=== PATIENT | female | born 1995 | race African-American/Black ===

== ENCOUNTER 2017-03-12 21:51 | Observation (INO) | payer BC, MEDICAID ==
[~2017-03-12] VITALS: Ht 165.1 cm; Wt 68.0 kg
[2017-03-12] MEDS ORDERED: PREN-88 PO (22:41)
[2017-03-12] MEDS ORDERED: LACTATED RINGERS 1,000 ML IV SCH (23:00)
[2017-03-12] MEDS ORDERED: ACETAMINOPHEN 500MG TABLET PO ONE (23:00)
[2017-03-12 23:55] LABS: CLARITY URINE CLOUDY (CLEAR); COLOR URINE YELLOW (YELLOW); GLUCOSE URINE NEGATIVE (NEGATIVE); KETONES URINE TRACE (NEGATIVE); LEUKOCYTE ESTERASE URINE TRACE (NEGATIVE); NITRITE URINE NEGATIVE (NEGATIVE); OCCULT BLOOD URINE 1+ (NEGATIVE); PH URINE 6.5 (4.5-8.0); PROTEIN URINE 1+ (NEGATIVE); SPECIFIC GRAVITY URINE 1.026 (1.005-1.030)
[2017-03-13 01:01] LABS: SQUAMOUS EPITHELIAL CELL URINE FEW /lpf (RARE/1+)
[2017-03-13 01:03] LABS: BACTERIA URINE NONE SEEN; WBC URINE 0-2 /hpf (0-2)
== END 2017-03-13 01:45 | disposition home or self-care (01) ==
LOC: L&D 21:51
PROVIDERS: ADMIT Specialist; ATTEND Specialist
DX: O26.893 Other specified pregnancy related conditions, third trimester (principal); R10.2 Pelvic and perineal pain; O26.853 Spotting complicating pregnancy, third trimester; Z3A.32 32 weeks gestation of pregnancy
CPT/HCPCS: 81001; 96360; 96361; 99281; G0378; J7120

== ENCOUNTER 2017-04-01 14:03 | Observation (INO) | payer BC, MEDICAID ==
[~2017-04-01] VITALS: Ht 165.1 cm; Wt 70.3 kg
[~2017-04-01 14:03] MED LIST: PREN-88 PO
[2017-04-01] MEDS: ACETAMINOPHEN 500MG TABLET PO NR ×2 (16:05→16:06)
[2017-04-01 16:28] LABS: CLARITY URINE CLOUDY (CLEAR); COLOR URINE YELLOW (YELLOW); GLUCOSE URINE NEGATIVE (NEGATIVE); KETONES URINE TRACE (NEGATIVE); LEUKOCYTE ESTERASE URINE 2+ (NEGATIVE); NITRITE URINE NEGATIVE (NEGATIVE); OCCULT BLOOD URINE NEGATIVE (NEGATIVE); PH URINE 6.5 (4.5-8.0); PROTEIN URINE 2+ (NEGATIVE); SPECIFIC GRAVITY URINE 1.024 (1.005-1.030)
[2017-04-01 16:50] LABS: BACTERIA URINE 1+; RBC URINE 0-2 /hpf (0-2); SQUAMOUS EPITHELIAL CELL URINE 1+ /lpf (RARE/1+)
[2017-04-01] MEDS ORDERED: LACTATED RINGERS 1,000 ML IV SCH ×2 (17:00)
[2017-04-01] MEDS ORDERED: CEFAZOLIN 1000MG PREMIX 50 ML IV NR (17:15)
== END 2017-04-01 18:30 | disposition home or self-care (01) ==
LOC: L&D 14:03
PROVIDERS: ADMIT Obstetrics & Gynecology; ATTEND Obstetrics & Gynecology
DX: O26.893 Other specified pregnancy related conditions, third trimester (principal); R10.2 Pelvic and perineal pain; Z3A.34 34 weeks gestation of pregnancy
CPT/HCPCS: 81001; 96361; 96365; 99281; G0378; J0690; J7120; 96360

== ENCOUNTER 2018-05-14 07:40 | Emergency (ER) | payer BC, MEDICAID ==
[~2018-05-14] VITALS: Ht 165.1 cm; Wt 57.0 kg
[2018-05-14] MEDS ORDERED: SODIUM CHLORIDE 0.9% 1,000 ML IV ONE (08:09)
[2018-05-14 11:20] LABS: BASOPHILS % 0.4 % (0.0-2.0); EOSINOPHILS % 0.9 % (0.0-5.0); HEMATOCRIT. 35.6 % (36.0-48.0); HEMOGLOBIN. 11.5 g/dL (12.0-16.0); LYMPHOCYTES % 20.8 % (20.0-50.0); MEAN CORPUSCULAR VOLUME 77.1 fL (81.0-99.0); MEAN PLATELET VOLUME 9.6 fl (7.4-10.4); MONOCYTES % 6.9 % (2.0-8.0); PLATELET 272 x1000/uL (130-400); RED BLOOD CELL COUNT 4.61 mill/uL (4.2-5.4); RED CELL DISTRIBUTION WIDTH 15.2 % (11.6-14.6)
[2018-05-14 11:23] LABS: CHLORIDE 109 mEq/L (98-107)
[2018-05-14 11:35] LABS: PARTIAL THROMBOPLASTIN TIME 26.1 sec (23.4-31.0); PROTHROMBIN TIME 10.7 sec (9.4-11.6)
[2018-05-14 11:46] LABS: B-HCG QUANTITATIVE 12910 mIU/mL (<3)
[2018-05-14 12:20] VITALS: BP 103/59
== END 2018-05-14 12:32 | disposition home or self-care (01) ==
LOC: ER 07:40
DX: O99.89 Other specified diseases and conditions complicating pregnancy, childbirth and the puerperium (principal); S30.1XXA Contusion of abdominal wall, initial encounter; V49.40XA Driver injured in collision with unspecified motor vehicles in traffic accident, initial encounter; Y93.89 Activity, other specified; Y92.410 Unspecified street and highway as the place of occurrence of the external cause
CPT/HCPCS: 36415; 76801; 76817; 80053; 84702; 85025; 85610; 85730; 86850; 86900; 86901; 99285; J7030

== ENCOUNTER 2018-05-15 17:18 | Emergency (ER) | payer BC, MEDICAID ==
[~2018-05-15] VITALS: Ht 162.6 cm; Wt 58.0 kg
[2018-05-15] MEDS ORDERED: ACETAMINOPHEN 325MG TABLET PO ONE (18:45)
[2018-05-15 18:51] LABS: BASOPHILS % 0.4 % (0.0-2.0); CHLORIDE 109 mEq/L (98-107); EOSINOPHILS % 0.4 % (0.0-5.0); HEMATOCRIT. 32.4 % (36.0-48.0); HEMOGLOBIN. 10.7 g/dL (12.0-16.0); LYMPHOCYTES % 19.1 % (20.0-50.0); MEAN CORPUSCULAR HEMOGLOBIN 25.2 pg (28.0-32.0); MEAN CORPUSCULAR VOLUME 76.4 fL (81.0-99.0); MEAN PLATELET VOLUME 9.6 fl (7.4-10.4); MONOCYTES % 7.6 % (2.0-8.0); NEUTROPHILS % 72.5 % (40.0-76.0); PLATELET 252 x1000/uL (130-400); RED BLOOD CELL COUNT 4.23 mill/uL (4.2-5.4); RED CELL DISTRIBUTION WIDTH 15.2 % (11.6-14.6)
[2018-05-15 21:00] VITALS: BP 107/64
== END 2018-05-15 21:50 | disposition home or self-care (01) ==
LOC: ER 19:06
DX: O20.0 Threatened abortion (principal); Z3A.01 Less than 8 weeks gestation of pregnancy
CPT/HCPCS: 36415; 76801; 76817; 80053; 81025; 84702; 85025; 99285; Z7610

== ENCOUNTER 2018-12-31 17:45 | Emergency (ER) | payer BC, MEDICAID ==
[~2018-12-31] VITALS: Ht 165.1 cm; Wt 59.0 kg
[2018-12-31 18:50] LABS: CLARITY URINE TURBID (CLEAR); COLOR URINE YELLOW (YELLOW); KETONES URINE TRACE (NEGATIVE); LEUKOCYTE ESTERASE URINE 2+ (NEGATIVE); NITRITE URINE NEGATIVE (NEGATIVE); OCCULT BLOOD URINE NEGATIVE (NEGATIVE); PH URINE 5.5 (4.5-8.0); PROTEIN URINE NEGATIVE (NEGATIVE); SPECIFIC GRAVITY URINE 1.023 (1.005-1.030); UROBILINOGEN URINE 0.2 E.U./dL (0.2-1.0)
[2018-12-31] MEDS ORDERED: CEFTRIAXONE SODIUM 250 MG/VIAL IM ONE (23:15)
[2018-12-31] MEDS ORDERED: AZITHROMYCIN 500 MG TABLET PO ONE (23:15)
[2018-12-31] MEDS ORDERED: LIDOCAINE HCL 1% 20ML VIAL (Pyxis) INJ INFIL ONE (23:30)
[2019-01-01 00:14] VITALS: BP 109/72
[2019-01-04 04:13] LABS: CHLAMYDIA TRACHOMATIS NAA Negative (Negative); NEISSERIA GONORRHOEAE NAA Negative (Negative)
== END 2019-01-01 00:15 | disposition home or self-care (01) ==
LOC: ER 18:29
DX: N39.0 Urinary tract infection, site not specified (principal); A64 Unspecified sexually transmitted disease; Z98.890 Other specified postprocedural states
CPT/HCPCS: 81003; 81025; 87210; 87491; 87591; 96372; 99283; J0696; J3490; Z7610

== ENCOUNTER 2019-03-06 15:55 | Inpatient (IN) | payer BC, MEDICAID ==
[~2019-03-06] VITALS: Ht 165.1 cm; Wt 67.6 kg
[2019-03-06] MEDS ORDERED: SODIUM CHLORIDE 0.9% 1,000 ML IV ONE (16:47)
[2019-03-06 17:09] LABS: BASOPHILS % 0.5 % (0.0-2.0); EOSINOPHILS % 1.6 % (0.0-5.0); HEMOGLOBIN. 10.7 g/dL (12.0-16.0); LYMPHOCYTES % 18.7 % (20.0-50.0); MEAN CORPUSCULAR HEMOGLOBIN 26.1 pg (28.0-32.0); MEAN CORPUSCULAR VOLUME 78.3 fL (81.0-99.0); MEAN PLATELET VOLUME 9.5 fl (7.4-10.4); MONOCYTES % 8.4 % (2.0-8.0); NEUTROPHILS % 70.8 % (40.0-76.0); PLATELET 297 x1000/uL (130-400); RED BLOOD CELL COUNT 4.09 mill/uL (4.2-5.4); RED CELL DISTRIBUTION WIDTH 14.4 % (11.6-14.6)
[2019-03-06 17:13] LABS: CHLORIDE 107 mEq/L (98-107)
[2019-03-06 17:15] LABS: PROTHROMBIN TIME 10.4 sec (9.6-11.0)
[2019-03-06 17:18] LABS: HCG SCREEN POSITIVE
[2019-03-06 17:36] LABS: B-HCG QUANTITATIVE 9246 mIU/mL (<3)
[2019-03-06] MEDS ORDERED: ONDANSETRON HCL 4MG/2ML INJ IV STA (17:38)
[2019-03-06] MEDS ORDERED: MORPHINE SULFATE 4 MG/ML CPJ (NOT FOR IM USE) IV STA (17:38)
[2019-03-06] MEDS ORDERED: PROPOFOL 200MG/20ML VIAL IV ONE (18:24)
[2019-03-06] MEDS ORDERED: FENTANYL CITRATE/PF 50MCG/ML 2ML VIAL ONE ×2 (18:24→22:15)
[2019-03-06] MEDS ORDERED: LIDOCAINE HCL/PF 1% 10 MG/ML 5ML VIAL ONE (18:24)
[2019-03-06] MEDS ORDERED: ROCURONIUM BROMIDE 10MG/ML VIAL 5ML IV ONE (18:29)
[2019-03-06] MEDS ORDERED: SUCCINYLCHOLINE CHLORIDE 200MG/10ML IV ONE (18:29)
[2019-03-06] MEDS ORDERED: PHENYLEPHRINE HCL 10 MG/ML 1ML (IV VIAL) IV ONE (18:30)
[2019-03-06] MEDS ORDERED: MIDAZOLAM HCL 2 MG/2 ML VIAL ONE (19:56)
[2019-03-06] MEDS ORDERED: CEFAZOLIN SODIUM 1000MG/VIAL ONE (20:10)
[2019-03-06] MEDS ORDERED: ONDANSETRON HCL 4MG/2ML INJ ONE (20:24)
[2019-03-06] MEDS ORDERED: NEOSTIGMINE METHYLSULFATE 1MG/ML 10 ML VIAL ONE (20:31)
[2019-03-06] MEDS ORDERED: GLYCOPYRROLATE 0.2 MG/ML 2ML VIAL ONE ×2 (20:32→20:35)
[2019-03-06] MEDS ORDERED: FENTANYL CITRATE/PF 50MCG/ML 2ML VIAL IV PRN (21:15)
[2019-03-06] MEDS ORDERED: ONDANSETRON HCL 4MG/2ML INJ IV PRN (21:30)
[2019-03-06] MEDS ORDERED: HYDROMORPHONE HCL/PF 2MG/ML CPJ ONE (21:39)
[2019-03-06] MEDS: HYDROMORPHONE HCL/PF 2MG/ML CPJ IV PRN ×4 (21:43→22:17)
[2019-03-06] MEDS ORDERED: METHYLERGONOVINE MALEATE 0.2MG TABLET PO PRN (21:45)
[2019-03-07] VITALS (9 sets, daily range): BP systolic 89–118; BP diastolic 53–72
[2019-03-07] MEDS: DEXT 5%/0.45% NACL KCL 20MEQ/L 1,000 ML IV SCH ×2 (00:44→10:00)
[2019-03-07] MEDS: CEFAZOLIN 1000MG PREMIX 50 ML IV SCH ×2 (00:44→08:27)
[2019-03-07] MEDS: MORPHINE SULFATE 4 MG/ML CPJ (NOT FOR IM USE) IV PRN ×3 (02:17→22:16)
[2019-03-07 06:56] LABS: MEAN CORPUSCULAR HEMOGLOBIN 26.2 pg (28.0-32.0); MEAN CORPUSCULAR VOLUME 78.7 fL (81.0-99.0); MEAN PLATELET VOLUME 9.2 fl (7.4-10.4); PLATELET 193 x1000/uL (130-400); RED BLOOD CELL COUNT 2.15 mill/uL (4.2-5.4); RED CELL DISTRIBUTION WIDTH 14.3 % (11.6-14.6)
[2019-03-07 07:27] LABS: HEMATOCRIT. 16.9 % (36.0-48.0); HEMOGLOBIN. 5.6 g/dL (12.0-16.0)
[2019-03-07 08:28] LABS: PLATELET ESTIMATE NORMAL
[2019-03-07] MEDS: ACETAMINOPHEN 650MG SUPP PR PRN (09:56)
[2019-03-07] MEDS ORDERED: CEFAZOLIN 1000MG PREMIX 50 ML IV SCH (20:00)
[2019-03-07 23:02] LABS: HEMATOCRIT 19.4 % (36.0-48.0); HEMOGLOBIN 6.5 g/dL (12.0-16.0)
[2019-03-08] VITALS (9 sets, daily range): BP systolic 102–119; BP diastolic 58–70
[2019-03-08] MEDS: ACETAMINOPHEN 650MG SUPP PR PRN ×2 (00:15→04:08)
[2019-03-08] MEDS: DEXT 5%/0.45% NACL KCL 20MEQ/L 1,000 ML IV SCH ×3 (06:31→17:00)
[2019-03-08] MEDS: MORPHINE SULFATE 4 MG/ML CPJ (NOT FOR IM USE) IV PRN ×2 (09:53→14:06)
[2019-03-08 12:00] LABS: HEMATOCRIT 24.6 % (36.0-48.0); HEMOGLOBIN 8.2 g/dL (12.0-16.0)
[2019-03-08 12:06] LABS: INR 1.1
[2019-03-08] MEDS: IBUPROFEN 600MG TABLET PO PRN (16:59)
[2019-03-09] VITALS: BP 88/46
[2019-03-09] MEDS: IBUPROFEN 600MG TABLET PO PRN ×2 (03:05→11:11)
[2019-03-09 04:00] VITALS: BP 103/58
[2019-03-09 07:57] VITALS: BP 97/60
[2019-03-09] MEDS: DEXT 5%/0.45% NACL KCL 20MEQ/L 1,000 ML IV SCH (11:11)
[2019-03-09 12:00] VITALS: BP 112/64
[2019-03-09 13:58] VITALS: BP 112/64
== END 2019-03-09 14:46 | disposition home or self-care (01) | DRG 546 ==
LOC: ER 16:20 → ORIP 18:17 → ER 20:12 → 6EST 23:26
PROVIDERS: ADMIT Obstetrics & Gynecology; ATTEND Obstetrics & Gynecology
PROC: 0UC Female Reproductive System, Extirpation (ICD-10-PCS; 2019-03-06)
PROC: 30233N1 Transfusion of Nonautologous Red Blood Cells into Peripheral Vein, Percutaneous Approach (ICD-10-PCS; principal; 2019-03-07)
DX: O00.90 Unspecified ectopic pregnancy without intrauterine pregnancy (principal); O08.1 Delayed or excessive hemorrhage following ectopic and molar pregnancy; D64.9 Anemia, unspecified; O99.019 Anemia complicating pregnancy, unspecified trimester; Z79.899 Other long term (current) drug therapy
CPT/HCPCS: 36415; 71045; 76801; 84702; 84703; 85014; 85018; 85049; 85384; 86850; 86900; 86920; 88305; 93005; 96374; 96375; 99291; J0330; J0690; J1170; J2250; J2270; J2370; J2405; J2704; J2710; J3010; J3490; J7030; J7040; P9016

== ENCOUNTER 2019-04-07 16:33 | Emergency (ER) | payer MEDICAID ==
[~2019-04-07] VITALS: Ht 165.1 cm; Wt 68.0 kg
[2019-04-07] MEDS ORDERED: IBUPROFEN 600MG TABLET PO ONE (17:00)
[2019-04-07 17:30] VITALS: BP 113/71
[2019-04-07] MEDS ORDERED: LIDOCAINE 1%/EPI 1:100,000 10 ML VIAL IJ ONE (19:00)
[2019-04-07] MEDS ORDERED: BACITRACIN ZINC OINT UDPKT TOP ONE (19:00)
[2019-04-07] MEDS ORDERED: LIDOCAINE HCL/EPINEPHRINE 1%-EPI 1:100,000 20 ML VIAL INFIL NR (19:30)
[2019-04-07 19:32] LABS: BASOPHILS % 0.6 % (0.0-2.0); EOSINOPHILS % 4.6 % (0.0-5.0); HEMATOCRIT. 28.1 % (36.0-48.0); HEMOGLOBIN. 9.2 g/dL (12.0-16.0); LYMPHOCYTES % 24.4 % (20.0-50.0); MEAN CORPUSCULAR HEMOGLOBIN 25.3 pg (28.0-32.0); MEAN CORPUSCULAR VOLUME 77.3 fL (81.0-99.0); MEAN PLATELET VOLUME 9.1 fl (7.4-10.4); MONOCYTES % 9.7 % (2.0-8.0); NEUTROPHILS % 60.7 % (40.0-76.0); PLATELET 205 x1000/uL (130-400); RED BLOOD CELL COUNT 3.63 mill/uL (4.2-5.4)
[2019-04-07 19:34] LABS: CHLORIDE 111 mEq/L (98-107)
[2019-04-07] MEDS ORDERED: HYDROCODONE/ACETAMINOPHEN 5/325MG TABLET PO ONE (19:45)
== END 2019-04-07 21:16 | disposition home or self-care (01) ==
LOC: ER 17:22
DX: M25.461 Effusion, right knee (principal); Z98.890 Other specified postprocedural states
CPT/HCPCS: 36415; 73562; 80053; 81025; 84550; 85025; 85651; 99284; J3490; L1830; Z7610

== ENCOUNTER 2019-07-09 03:14 | Emergency (ER) | payer MEDICAID ==
[~2019-07-09] VITALS: Ht 165.1 cm; Wt 66.0 kg
[2019-07-09] MEDS ORDERED: POLYETHYLENE GLYCOL 3350 (17GM) 1 DOSE PACK PO ONE (08:00)
[2019-07-09 08:12] LABS: BASOPHILS % 0.6 % (0.0-2.0); EOSINOPHILS % 1.2 % (0.0-5.0); HEMATOCRIT. 32.2 % (36.0-48.0); HEMOGLOBIN. 10.2 g/dL (12.0-16.0); LYMPHOCYTES % 16.7 % (20.0-50.0); MEAN CORPUSCULAR VOLUME 72.7 fL (81.0-99.0); NEUTROPHILS % 67.5 % (40.0-76.0); PLATELET 282 x1000/uL (130-400); RED BLOOD CELL COUNT 4.44 mill/uL (4.2-5.4); RED CELL DISTRIBUTION WIDTH 18.4 % (11.6-14.6)
[2019-07-09 08:18] LABS: CHLORIDE 109 mEq/L (98-107)
[2019-07-09 08:20] LABS: PROTHROMBIN TIME 10.4 sec (9.6-11.0)
[2019-07-09 08:27] LABS: HCG SCREEN NEGATIVE
[2019-07-09] MEDS ORDERED: KETOROLAC 15MG/ML VIAL IV ONE (08:45)
[2019-07-09 09:03] LABS: CLARITY URINE CLEAR (CLEAR); COLOR URINE YELLOW (YELLOW); KETONES URINE 1+ (NEGATIVE); LEUKOCYTE ESTERASE URINE NEGATIVE (NEGATIVE); NITRITE URINE NEGATIVE (NEGATIVE); OCCULT BLOOD URINE NEGATIVE (NEGATIVE); PROTEIN URINE NEGATIVE (NEGATIVE); UROBILINOGEN URINE 0.2 E.U./dL (0.2-1.0)
[2019-07-09 09:45] VITALS: BP 98/63
== END 2019-07-09 09:52 | disposition home or self-care (01) ==
LOC: ER 03:14
DX: K59.00 Constipation, unspecified (principal); R10.30 Lower abdominal pain, unspecified
CPT/HCPCS: 36415; 74018; 80053; 81003; 83690; 84703; 85025; 85610; 96374; 99284; J1885; Z7610

== ENCOUNTER 2021-06-18 17:34 | Emergency (ER) | payer MEDICAID ==
[~2021-06-18] VITALS: Ht 165.1 cm; Wt 60.0 kg
[2021-06-18] MEDS ORDERED: LORAZEPAM 1MG TABLET PO ONE (19:15)
[2021-06-18] MEDS ORDERED: HYDR-3992 MT (21:06)
[2021-06-18 21:16] VITALS: BP 110/60
== END 2021-06-18 21:16 | disposition home or self-care (01) ==
LOC: ER 17:34
DX: R00.2 Palpitations (principal); R07.89 Other chest pain; R42 Dizziness and giddiness
CPT/HCPCS: 81025; 93005; 99283